=== PATIENT | male | born 1975 | race Two or more races ===

== ENCOUNTER 2017-02-26 13:33 | Inpatient (IN) | payer OTHER ==
[2017-02-26 15:04] VITALS: BMI 31.1
--- NOTE | 2017-02-26 18:35 | HP ---
COWS - Scale Resting Pulse: 1= [place] 81-100 Sweatin= Chills/Flushing Restless Observation: 1= Difficult to Sit Still Pupil Size: 0= Normal to Room Light Bone or Joint Aches: 2= Severe Diffuse Aches Runny Nose/ Eye Tearin= Runny Nose/Eyes GI Upset > 30mins: 1= Stomach Cramp Tremor Observation: 2= Slight Tremor Visible Yawning Observation: 1= 1-2x During Session Anxiety or Irritability: 2=Irritable/Anxious Goose Flesh Skin: 0=Smooth Skin COWS Score: [address] [facility] Chief Complaint: WITHDRAWAL SX Allergies/Adverse Reactions: Allergies Allergy/AdvReac Type Severity Reaction Status Date / Time No Known Allergies Allergy Verified 02/26/17 18:31 History of Present Illness: 41 YEARS OLD MALE WITH LONG HISTORY OF OPIATE NICOTINE DEPENDENCE HAS POSITIVE PPD HYPERTENSION AMBULATE WITH CANE X 6 MONTHS AND BIPOLAR II IS ADMITTED TO DETOX Exam Limitations: No Limitations - Ebola screening Have you traveled outside of the country in the last 21 days: No Have you had contact with anyone from an Ebola affected area: No Have you been sick,other than usual withdrawal symptoms: No Do you have a fever: No - Review of Systems Constitutional: Changes in sleep, Weight Stable EENT: reports: Blurred Vision (NEED EYE GLASSES) Respiratory: reports: No Symptoms reported Cardiac: reports: No Symptoms Reported GI: reports: Nausea, Poor Fluid Intake, Indigestion, Abdominal cramping : reports: No Symptoms Reported Musculoskeletal: reports: Back Pain, Joint Pain, Muscle Pain, Muscle Weakness ( RIGHT LEG), Neck Pain Integumentary: reports: Lesions (BLISTER BILATERALLY FEET) Neuro: reports: Tremors Endocrine: reports: No Symptoms Reported Hematology: reports: No Symptoms Reported Psychiatric: reports: Judgement Intact, Orientated x3, Anxious, Depressed Other Systems: Reviewed and Negative Patient History - Patient Medical History Hx Anemia: No Hx Asthma: No Hx Chronic Obstructive Pulmonary Disease (COPD): No Hx Cancer: No Hx Cardiac Disorders: No Hx Congestive Heart Failure: No Hx Hypertension: Yes Hx Hypercholesterolemia: No Hx Pacemaker: No HX Cerebrovascular Accident: No Hx Seizures: No Hx Dementia: No Hx Diabetes: No Hx Gastrointestinal Disorders: No Hx Liver Disease: No Hx Genitourinary Disorders: No Hx Sexually Transmitted Disorders: No Hx Renal Disease (ESRD): No Hx Thyroid Disease: No Hx Human Immunodeficiency Virus (HIV): No Hx Hepatitis C: Yes Hx Depression: No Hx Suicide Attempt: Yes (2004 CUT SELF) Hx Bipolar Disorder: Yes Hx Schizophrenia: No - Patient Surgical History Past Surgical History: No - PPD History Previous Implant?: Yes Documented Results: Positive w/o proof Implanted On Prior [facility] Admission?: No PPD to be Administered?: No - Smoking Cessation Smoking history: Current every day smoker Have you smoked in the past 12 months: Yes Aproximately how many cigarettes per day: 3 Cigars Per Day: 0 Hx Chewing Tobacco Use: No Initiated information on smoking cessation: Yes 'Breaking Loose' booklet given: 02/26/17 - Substance & Tx. History Hx Alcohol Use: No Hx Substance Use: Yes Substance Use Type: Cocaine, Heroin Hx Substance Use Treatment: Yes (2016 ARM ACE) - Substances Abused Heroin Route: Injection Frequency: Daily Amount used: 10 BAGS Age of first use: 26 Date of Last Use: 02/26/17 Family Disease History - Family Disease History Family Disease History: Heart Disease: Grandparent, Other: Father (), Mother ( HIV) Admission Physical Exam S - Vital Signs Vital Signs: Vital Signs - 24 hr 02/26/17 15:02 Temperature 99.0 F Pulse Rate 95 H Respiratory 18 Rate Blood Pressure 144/84 - Physical General Appearance: Yes: Nourished, Appropriately Dressed, Mild Distress, Tremorous, Irritable, Sweating, Anxious HEENTM: Yes: Normal ENT Inspection, Normocephalic, Normal Voice Respiratory: Yes: Chest Non-Tender, Lungs Clear, Normal Breath Sounds, No Respiratory Distress, No Accessory Muscle Use Neck: Yes: Supple, Trachea in good position Breast: Yes: Breasts Symetrical Cardiology: Yes: Regular Rhythm, S1, S2, Tachycardia Abdominal: Yes: Non Tender, Soft Genitourinary: Yes: Within Normal Limits Back: Yes: Normal Inspection Musculoskeletal: Yes: full range of Motion, Gait Steady, Back pain, Muscle Pain Extremities: Yes: Normal Range of Motion, Non-Tender, Tremors Neurological: Yes: Fully Oriented, Alert, Motor Strength 5/5, Normal Response, Depressed Affect Integumentary: Yes: Warm, Track Martí[place], Other (BLISTER BOTH FEET) Lymphatic: Yes: Within Normal Limits - Diagnostic (1) Opioid dependence with withdrawal Current Visit: Yes Status: Acute (2) Cocaine dependence, uncomplicated Current Visit: Yes Status: Chronic (3) Hypertension Current Visit: Yes Status: Acute Qualifiers: Hypertension type: essential hypertension Qualified Code(s): I10 - Essential (primary) hypertension (4) GERD (gastroesophageal reflux disease) Current Visit: Yes Status: Chronic Qualifiers: Esophagitis presence: without esophagitis Qualified Code(s): K21.9 - Gastro-esophageal reflux disease without esophagitis (5) Hepatitis C Current Visit: Yes Status: Resolved Qualifiers: Viral hepatitis chronicity: unspecified Hepatic coma status: without hepatic coma Qualified Code(s): B19.20 - Unspecified viral hepatitis C without hepatic coma Comment: TREATED (6) Use of cane as ambulatory aid Current Visit: Yes Status: Chronic Comment: RIGHT LEG (7) Positive PPD, treated Current Visit: Yes Status: Resolved (8) Bipolar II disorder Current Visit: Yes Status: Suspected Cleared for Admission S - Detox or Rehab [facility] Level of Care: Medically Managed Detox Regimen/Protocol: Methadone S Breath Alcohol Content Breath Alcohol Content: 0 Urine Drug Screen - Results Drug Screen Negative: No Urine Drug Screen Results: SUSANA-Cocaine, OPI-Opiates
[2017-02-26] MEDS ORDERED: MENTHOL/PHENOL 1 EACH UD MM PRN (18:38)
[2017-02-26] MEDS ORDERED: MAGNESIUM HYDROX 2400MG/30ML ORAL SUSPENSION 30 ML CUP PO PRN (18:38)
[2017-02-26] MEDS ORDERED: METHADONE HCL 10 MG TABLET (FOR DETOX USE ONLY) PO ONE ×2 (18:38→23:00)
[2017-02-26] MEDS ORDERED: MAGNESIUM CITRATE 300 ML BOTTLE PO PRN (18:38)
[2017-02-26] MEDS ORDERED: guaiFENesin/D-METHORPHAN HB 10 ML UNIT-DOSE CUPS PO PRN (18:38)
[2017-02-26] MEDS ORDERED: LOPERAMIDE HCL 2 MG CAPSULE PO PRN (18:38)
[2017-02-26] MEDS ORDERED: NICOTINE POLACRILEX 2 MG GUM BC PRN (18:38)
[2017-02-26] MEDS ORDERED: ACETAMINOPHEN 325 MG TABLET (FP) PO PRN (18:38)
[2017-02-26] MEDS ORDERED: P-EPHED 60MG/TRIPROLIDI 2.5MG TABLET PO PRN (18:38)
[2017-02-26] MEDS ORDERED: MAG HYDROX/AL HYDROX/SIMETH 30 ML UNIT-DOSE CUP PO PRN (18:38)
[2017-02-26] MEDS ORDERED: diphenhydrAMINE HCL 50 MG CAPSULE PO PRN (18:38)
[2017-02-26] MEDS: diazePAM 5 MG TABLET PO PRN (20:21)
[2017-02-26] MEDS: LISINOPRIL 10 MG TABLET (FP) PO SCH (20:22)
[2017-02-26] MEDS: THIAMINE HCL 100 MG TABLET (FP) PO SCH (22:16)
[2017-02-26] MEDS: RANITIDINE HCL 150 MG TABLET (FP) PO SCH (22:16)
[2017-02-26 22:41] LABS: URINE APPEARANCE CLEAR; URINE BILIRUBIN NEGATIVE (NEGATIVE); URINE BLOOD NEGATIVE (NEGATIVE); URINE COLOR YELLOW; URINE GLUCOSE (UA) NEGATIVE (NEGATIVE); URINE KETONE NEGATIVE (NEGATIVE); URINE LEUK ESTERASE NEGATIVE (NEGATIVE); URINE NITRITE NEGATIVE (NEGATIVE); URINE PROTEIN NEGATIVE (NEGATIVE); URINE UROBILINOGEN NEGATIVE mg/dL (0.2-1.0)
[2017-02-27] MEDS ORDERED: METHADONE HCL 10 MG TABLET (FOR DETOX USE ONLY) PO ONE (10:00)
[2017-02-27] MEDS: PRENATAL VITAMINS W/ FOLIC ACID TABLET (FP) PO SCH (10:25)
[2017-02-27] MEDS: LISINOPRIL 10 MG TABLET (FP) PO SCH (10:25)
[2017-02-27] MEDS: RANITIDINE HCL 150 MG TABLET (FP) PO SCH ×2 (10:25→22:28)
[2017-02-27 11:02] LABS: MCH 22.9 pg (25.7-33.7); MCHC 32.1 g/dl (32.0-35.9); MEAN CELL VOLUME 71.4 fl (80-96); MEAN PLT VOLUME 8.6 fl (7.5-11.1); PLATELET COUNT 229 K/MM3 (134-434); RDW 15.4 % (11.9-15.9); WHITE BLOOD COUNT 5.1 K/mm3 (4.0-10.0)
[2017-02-27 11:13] LABS: ALBUMIN 3.2 g/dl (3.4-5.0); ANION GAP 6 (8-16); CALCIUM 8.6 mg/dL (8.5-10.1); CO2 29 mmol/L (21-32); GLUCOSE,RANDOM 93 mg/dL (74-106); SGOT/AST 15 U/L (15-37)
[2017-02-27 11:29] LABS: ALK PHOS 102 U/L (45-117); BILIRUBIN,TOTAL 0.3 mg/dL (0.2-1.0); SGPT/ALT 25 U/L (12-78); TOT PROT 6.3 g/dl (6.4-8.2)
--- NOTE | 2017-02-27 12:15 | PN ---
S COWS - Scale Resting Pulse: 0= [place] 80 or Below Sweatin= Chills/Flushing Restless Observation: 3= Extraneous Movement Pupil Size: 1= Pupils >than Normal Bone or Joint Aches: 2= Severe Diffuse Aches Runny Nose/ Eye Tearin= Runny Nose/Eyes GI Upset > 30mins: 2= Nausea/Diarrhea Tremor Observation of Outstretched Hands: 2= Slight Tremor Visible Yawning Observation: 1= 1-2x During Session Anxiety or Irritability: 2=Irritable/Anxious Goose Flesh Skin: 0=Smooth Skin COWS Score: 16 S Progress Note (SOAP) Subjective: alert,irritable,anxious,interrupted sleep,tremor,pain in the body and back Objective: 02/27/17 12:12 Vital Signs Temperature 97.5 F L 02/27/17 09:52 Pulse Rate 81 02/27/17 09:52 Respiratory Rate 20 02/27/17 09:52 Blood Pressure 142/96 02/27/17 09:52 O2 Sat by Pulse Oximetry (%) ekg nsr,rbbb no chest pain,no sob,no dizziness Laboratory Last Values WBC 5.1 K/mm3 (4.0-10.0) 02/27/17 08:00 RBC 5.63 M/mm3 (4.00-5.60) H 02/27/17 08:00 Hgb 12.9 GM/dL (11.7-16.9) 02/27/17 08:00 Hct 40.2 % (35.4-49) 02/27/17 08:00 MCV 71.4 fl (80-96) L 02/27/17 08:00 MCH 22.9 pg (25.7-33.7) L 02/27/17 08:00 MCHC 32.1 g/dl (32.0-35.9) 02/27/17 08:00 RDW 15.4 % (11.9-15.9) 02/27/17 08:00 Plt Count 229 K/MM3 (134-434) 02/27/17 08:00 MPV 8.6 fl (7.5-11.1) 02/27/17 08:00 Sodium 142 mmol/L (136-145) 02/27/17 08:00 Potassium 4.6 mmol/L (3.5-5.1) 02/27/17 08:00 Chloride 107 mmol/L (98-107) 02/27/17 08:00 Carbon Dioxide 29 mmol/L (21-32) 02/27/17 08:00 Anion Gap 6 (8-16) L 02/27/17 08:00 BUN 15 mg/dL (7-18) 02/27/17 08:00 Creatinine 1.0 mg/dL (0.7-1.3) 02/27/17 08:00 Creat Clearance w eGFR > 60 (>60) 02/27/17 08:00 Random Glucose 93 mg/dL (74-106) 02/27/17 08:00 Calcium 8.6 mg/dL (8.5-10.1) 02/27/17 08:00 Total Bilirubin 0.3 mg/dL (0.2-1.0) 02/27/17 08:00 AST 15 U/L (15-37) 02/27/17 08:00 ALT 25 U/L (12-78) 02/27/17 08:00 Alkaline Phosphatase 102 U/L (45-117) 02/27/17 08:00 Total Protein 6.3 g/dl (6.4-8.2) L 02/27/17 08:00 Albumin 3.2 g/dl (3.4-5.0) L 02/27/17 08:00 Urine Color Yellow 02/26/17 21:45 Urine Appearance Clear 02/26/17 21:45 Urine pH 5.0 (5.0-8.0) 02/26/17 21:45 Ur Specific [place] >= 1.030 (1.005-1.025) H 02/26/17 21:45 Urine Protein Negative (NEGATIVE) 02/26/17 21:45 Urine Glucose (UA) Negative (NEGATIVE) 02/26/17 21:45 Urine Ketones Negative (NEGATIVE) 02/26/17 21:45 Urine Blood Negative (NEGATIVE) 02/26/17 21:45 Urine Nitrite Negative (NEGATIVE) 02/26/17 21:45 Urine Bilirubin Negative (NEGATIVE) 02/26/17 21:45 Urine Urobilinogen Negative mg/dL (0.2-1.0) 02/26/17 21:45 Ur Leukocyte Esterase Negative (NEGATIVE) 02/26/17 21:45 Assessment: 02/27/17 12:14 withdrawal symptom Plan: continue detox
[2017-02-27] MEDS: diazePAM 5 MG TABLET PO PRN ×2 (12:17→22:28)
[2017-02-27] MEDS: NICOTINE 14 MG/24 HOURS TOPICAL PATCH TD SCH (12:44)
--- NOTE | 2017-02-27 17:27 | CONSULT ---
[facility] Psychiatric Consult - Data Date of interview: 02/27/17 Admission source: [facility] Identifying data: First admission to [facility] for this 41 y/o male seeking detox treatment on for heroin and cocaine dependence.Patient is single,a father of one,homeless,unemployed and deprived of any source of income. Substance Abuse History: Discussed with the patient in this interview.Mr Soto admits to this patterns of substance abuse. Smoking Cessation. Smoking history : Current every day smoker. Have you smoked in the past 12 months: Yes. Aproximately how many cigarettes per day: 3. Cigars Per Day: 0. Hx Chewing Tobacco Use: No. Initiated information on smoking cessation: Yes. 'Breaking Loose' booklet given: 02/26/17. - Substance & Tx. History. Hx Alcohol Use: No. Hx Substance Use: Yes. Substance Use Type: Cocaine, Heroin. Hx Substance Use Treatment: Yes (Formerly named [facility]). - Substances Abused. Heroin. Route: Injection. Frequency: Daily. Amount used: 10 BAGS. Age of first use: 26. Date of Last Use: 02/26/17 Medical History: History of positive PPD,hepatitis C,lower back pain,sciatica ( patient walks with cane) and hypertension. Psychiatric History: Diagnosed with Bipolar Disorder (self-report) and prescribed remeron,vistaril and sertraline.Patient admits to past psychiatric hospitalizations at [facility] ([place]).Questionable adherence to medications.No report of psychiatric care.Mr Soto reports a history of suicide attempts (self-mutilation + hanging). Physical/Sexual Abuse/Trauma History: Patient denies. Additional Comment: Urine Drug Screen Results: SUSANA-Cocaine, OPI-Opiates.Noted. Mental Status Exam - Mental Status Exam Alert and Oriented to: Time, Place, Person Cognitive Function: Good Patient Appearance: Well Groomed Mood: Nervous, Anxious Affect: Mood Congruent Patient Behavior: Fatigued, Appropriate, Cooperative Speech Pattern: Clear Voice Loudness: Normal Thought Process: Goal Oriented Thought Disorder: Not Present Hallucinations: Denies Suicidal Ideation: Denies Homicidal Ideation: Denies Insight/Judgement: Poor Sleep: Poorly, Difficulty falling asleep Appetite: Good Muscle strength/Tone: Normal Gait/Station: Other (walks with a cane) Psychiatric Findings - Problem List ([place] 1, 2,3) (1) Opioid dependence with withdrawal Current Visit: Yes Status: Acute (2) Cocaine dependence, uncomplicated Current Visit: Yes Status: Acute (3) Nicotine dependence Current Visit: Yes Status: Acute (4) Substance induced mood disorder Current Visit: Yes Status: Acute (5) Depressive disorder Current Visit: Yes Status: Chronic (6) Hypertension Current Visit: Yes Status: Acute Qualifiers: Hypertension type: essential hypertension Qualified Code(s): I10 - Essential (primary) hypertension (7) GERD (gastroesophageal reflux disease) Current Visit: Yes Status: Chronic Qualifiers: Esophagitis presence: without esophagitis Qualified Code(s): K21.9 - Gastro-esophageal reflux disease without esophagitis (8) Hepatitis C Current Visit: Yes Status: Resolved Qualifiers: Viral hepatitis chronicity: unspecified Hepatic coma status: without hepatic coma Qualified Code(s): B19.20 - Unspecified viral hepatitis C without hepatic coma Comment: TREATED (9) Positive PPD, treated Current Visit: Yes Status: Resolved (10) Use of cane as ambulatory aid Current Visit: Yes Status: Chronic Comment: RIGHT LEG (11) Insomnia Current Visit: Yes Status: Acute - Initial Treatment Plan Initial Treatment Plan: Psychoeducation.Detoxification.Medications : sertraline 50 mg po daily + remeron 15 mg po hs.Side effects/benefits discussed with patient.Mr Soto is in agreement with this careplan.Observation.
--- NOTE | 2017-02-27 18:44 | EKG ---
Test Reason : Blood Pressure : / mmHG Vent. Rate : 089 BPM Atrial Rate : 089 BPM P-R Int : 148 ms QRS Dur : 138 ms QT Int : 380 ms P-R-T Axes : 055 -04 008 degrees QTc Int : 462 ms NORMAL SINUS RHYTHM RIGHT BUNDLE BRANCH BLOCK ABNORMAL ECG NO PREVIOUS ECGS AVAILABLE Confirmed by SEBASTIAN FERNÁNDEZ MD ([id number]) on 02/27/2017 6:44:47 PM Referred By: Confirmed By:SEBASTIAN FERNÁNDEZ MD
[2017-02-27] MEDS: MIRTAZAPINE 15 MG TABLET (FP) PO SCH (22:28)
[2017-02-27] MEDS: THIAMINE HCL 100 MG TABLET (FP) PO SCH (22:29)
[2017-02-28] MEDS ORDERED: METHADONE HCL 5 MG TABLET (FOR DETOX USE ONLY) PO ONE (10:00)
[2017-02-28] MEDS: PRENATAL VITAMINS W/ FOLIC ACID TABLET (FP) PO SCH (10:33)
[2017-02-28] MEDS: diazePAM 5 MG TABLET PO PRN (10:33)
[2017-02-28] MEDS: SERTRALINE HCL 50 MG TABLET (FP) PO SCH (10:33)
[2017-02-28] MEDS: NICOTINE 14 MG/24 HOURS TOPICAL PATCH TD SCH (10:33)
[2017-02-28] MEDS: RANITIDINE HCL 150 MG TABLET (FP) PO SCH ×2 (10:33→23:27)
[2017-02-28] MEDS: LISINOPRIL 10 MG TABLET (FP) PO SCH (10:34)
--- NOTE | 2017-02-28 12:28 | PN ---
S COWS - Scale Resting Pulse: 1= [place] 81-100 Sweatin= Chills/Flushing Restless Observation: 3= Extraneous Movement Pupil Size: 1= Pupils >than Normal Bone or Joint Aches: 2= Severe Diffuse Aches Runny Nose/ Eye Tearin= Runny Nose/Eyes GI Upset > 30mins: 2= Nausea/Diarrhea Tremor Observation of Outstretched Hands: 2= Slight Tremor Visible Yawning Observation: 1= 1-2x During Session Anxiety or Irritability: 2=Irritable/Anxious Goose Flesh Skin: 0=Smooth Skin COWS Score: 17 S Progress Note (SOAP) Subjective: ALERT,IRRITABLE,ANXIOUS,INTERRUPTED SLEEP,TREMOR,PAIN IN THE BODY AND BACK Objective: 02/28/17 12:26 Vital Signs Temperature 97.7 F 02/28/17 10:36 Pulse Rate 82 02/28/17 10:36 Respiratory Rate 16 02/28/17 10:36 Blood Pressure 140/95 02/28/17 10:36 O2 Sat by Pulse Oximetry (%) Laboratory Last Values WBC 5.1 K/mm3 (4.0-10.0) 02/27/17 08:00 RBC 5.63 M/mm3 (4.00-5.60) H 02/27/17 08:00 Hgb 12.9 GM/dL (11.7-16.9) 02/27/17 08:00 Hct 40.2 % (35.4-49) 02/27/17 08:00 MCV 71.4 fl (80-96) L 02/27/17 08:00 MCH 22.9 pg (25.7-33.7) L 02/27/17 08:00 MCHC 32.1 g/dl (32.0-35.9) 02/27/17 08:00 RDW 15.4 % (11.9-15.9) 02/27/17 08:00 Plt Count 229 K/MM3 (134-434) 02/27/17 08:00 MPV 8.6 fl (7.5-11.1) 02/27/17 08:00 Sodium 142 mmol/L (136-145) 02/27/17 08:00 Potassium 4.6 mmol/L (3.5-5.1) 02/27/17 08:00 Chloride 107 mmol/L (98-107) 02/27/17 08:00 Carbon Dioxide 29 mmol/L (21-32) 02/27/17 08:00 Anion Gap 6 (8-16) L 02/27/17 08:00 BUN 15 mg/dL (7-18) 02/27/17 08:00 Creatinine 1.0 mg/dL (0.7-1.3) 02/27/17 08:00 Creat Clearance w eGFR > 60 (>60) 02/27/17 08:00 Random Glucose 93 mg/dL (74-106) 02/27/17 08:00 Calcium 8.6 mg/dL (8.5-10.1) 02/27/17 08:00 Total Bilirubin 0.3 mg/dL (0.2-1.0) 02/27/17 08:00 AST 15 U/L (15-37) 02/27/17 08:00 ALT 25 U/L (12-78) 02/27/17 08:00 Alkaline Phosphatase 102 U/L (45-117) 02/27/17 08:00 Total Protein 6.3 g/dl (6.4-8.2) L 02/27/17 08:00 Albumin 3.2 g/dl (3.4-5.0) L 02/27/17 08:00 Urine Color Yellow 02/26/17 21:45 Urine Appearance Clear 02/26/17 21:45 Urine pH 5.0 (5.0-8.0) 02/26/17 21:45 Ur Specific [place] >= 1.030 (1.005-1.025) H 02/26/17 21:45 Urine Protein Negative (NEGATIVE) 02/26/17 21:45 Urine Glucose (UA) Negative (NEGATIVE) 02/26/17 21:45 Urine Ketones Negative (NEGATIVE) 02/26/17 21:45 Urine Blood Negative (NEGATIVE) 02/26/17 21:45 Urine Nitrite Negative (NEGATIVE) 02/26/17 21:45 Urine Bilirubin Negative (NEGATIVE) 02/26/17 21:45 Urine Urobilinogen Negative mg/dL (0.2-1.0) 02/26/17 21:45 Ur Leukocyte Esterase Negative (NEGATIVE) 02/26/17 21:45 RPR Titer Nonreactive (NONREACTIVE) 02/27/17 08:00 Assessment: 02/28/17 12:27 WITHDRAWAL SYMPTOM Plan: CONTINUE DETOX
[2017-02-28] MEDS: THIAMINE HCL 100 MG TABLET (FP) PO SCH (23:27)
[2017-02-28] MEDS: MIRTAZAPINE 15 MG TABLET (FP) PO SCH (23:27)
[2017-03-01] MEDS ORDERED: METHADONE HCL 5 MG TABLET (FOR DETOX USE ONLY) PO ONE (10:00)
[2017-03-01] MEDS: SERTRALINE HCL 50 MG TABLET (FP) PO SCH (10:25)
[2017-03-01] MEDS: LISINOPRIL 10 MG TABLET (FP) PO SCH (10:25)
[2017-03-01] MEDS: NICOTINE 14 MG/24 HOURS TOPICAL PATCH TD SCH (10:25)
[2017-03-01] MEDS: RANITIDINE HCL 150 MG TABLET (FP) PO SCH ×2 (10:25→22:13)
[2017-03-01] MEDS: PRENATAL VITAMINS W/ FOLIC ACID TABLET (FP) PO SCH (10:26)
--- NOTE | 2017-03-01 11:28 | PN ---
[facility] Progress Note (SOAP) Subjective: ALERT,IRRITABLE,ANXIOUS,INTERRUPTED SLEEP,PAIN IN THE BODY AND BACK Objective: 03/01/17 11:26 Vital Signs Temperature 98.2 F 03/01/17 10:38 Pulse Rate 97 H 03/01/17 10:38 Respiratory Rate 20 03/01/17 10:38 Blood Pressure 142/84 03/01/17 10:38 O2 Sat by Pulse Oximetry (%) Assessment: 03/01/17 11:27 WITHDRAWAL SYMPTOM Plan: CONTINUE DETOX
[2017-03-01] MEDS: THIAMINE HCL 100 MG TABLET (FP) PO SCH (22:12)
[2017-03-01] MEDS: MIRTAZAPINE 15 MG TABLET (FP) PO SCH (22:13)
[2017-03-02] MEDS ORDERED: METHADONE HCL 10 MG TABLET (FOR DETOX USE ONLY) PO ONE (10:00)
--- NOTE | 2017-03-02 10:09 | PN ---
[facility] Progress Note (SOAP) Subjective: ALERT,INTERRUPTED SLEEP,PAIN IN THE BODY Objective: 03/02/17 10:09 Vital Signs Temperature 96.8 F L 03/02/17 09:23 Pulse Rate 83 03/02/17 09:23 Respiratory Rate 18 03/02/17 09:23 Blood Pressure 149/97 03/02/17 09:23 O2 Sat by Pulse Oximetry (%) Assessment: 03/02/17 10:09 WITHDRAWAL SYMPTOM Plan: CONTINUE DETOX
[2017-03-02] MEDS: SERTRALINE HCL 50 MG TABLET (FP) PO SCH (10:14)
[2017-03-02] MEDS: RANITIDINE HCL 150 MG TABLET (FP) PO SCH ×2 (10:14→22:10)
[2017-03-02] MEDS: NICOTINE 14 MG/24 HOURS TOPICAL PATCH TD SCH (10:14)
[2017-03-02] MEDS: PRENATAL VITAMINS W/ FOLIC ACID TABLET (FP) PO SCH (10:14)
[2017-03-02] MEDS: LISINOPRIL 10 MG TABLET (FP) PO SCH (10:15)
[2017-03-02] MEDS: THIAMINE HCL 100 MG TABLET (FP) PO SCH (22:10)
[2017-03-02] MEDS: MIRTAZAPINE 15 MG TABLET (FP) PO SCH (22:10)
[2017-03-03] MEDS ORDERED: METHADONE HCL 5 MG TABLET (FOR DETOX USE ONLY) PO ONE (06:00)
--- NOTE | 2017-03-03 09:37 | DS ---
[facility] Detox Discharge Summary Admission Date: 02/26/17 Discharge Date: 03/03/17 - History Present History: Cocaine Dependence, Opioid Dependence Additional Comments: follow up with after care program as arrangement Pertinent Past History: hypertension gerd hepatitis c low back pain use cane for ambulatory aid bipolar 2 disorder - Physical Exam Results Vital Signs: Vital Signs Temperature 98.1 F 03/02/17 21:22 Pulse Rate 82 03/02/17 21:22 Respiratory Rate 18 03/03/17 00:30 Blood Pressure 118/94 03/02/17 21:22 O2 Sat by Pulse Oximetry (%) - Treatment Hospital Course: Detox Protocol Followed, Detoxed Safely, Responded well, Discharged Condition Good Patient has Accepted a Rehab Referral to: dceclined - Medication Discharge Medications: Ambulatory Orders Hydroxyzine Pamoate [Vistaril -] 50 mg PO HS 02/26/17 Lisinopril [Prinivil -] 10 mg PO DAILY 02/26/17 Mirtazapine [Remeron -] 15 mg PO HS 02/26/17 Sertraline HCl [Zoloft -] 50 mg PO DAILY 02/26/17 Mirtazapine [Remeron -] 15 mg PO HS #30 tablet 02/27/17 Sertraline HCl [Zoloft -] 50 mg PO DAILY #30 tablet 02/27/17 - Diagnosis (1) Cocaine dependence, uncomplicated Current Visit: Yes Status: Acute (2) Hypertension Current Visit: Yes Status: Acute Qualifiers: Hypertension type: essential hypertension Qualified Code(s): I10 - Essential (primary) hypertension (3) Insomnia Current Visit: Yes Status: Acute (4) Nicotine dependence Current Visit: Yes Status: Acute (5) Opioid dependence with withdrawal Current Visit: Yes Status: Acute (6) Substance induced mood disorder Current Visit: Yes Status: Acute (7) Depressive disorder Current Visit: Yes Status: Chronic (8) GERD (gastroesophageal reflux disease) Current Visit: Yes Status: Chronic Qualifiers: Esophagitis presence: without esophagitis Qualified Code(s): K21.9 - Gastro-esophageal reflux disease without esophagitis (9) Use of cane as ambulatory aid Current Visit: Yes Status: Chronic (10) Bipolar II disorder Current Visit: Yes Status: Suspected (11) Hepatitis C Current Visit: Yes Status: Resolved Qualifiers: Viral hepatitis chronicity: unspecified Hepatic coma status: without hepatic coma Qualified Code(s): B19.20 - Unspecified viral hepatitis C without hepatic coma (12) Positive PPD, treated Current Visit: Yes Status: Resolved (13) Low back pain Current Visit: Yes Status: Acute - AMA Did Patient Leave Against Medical Advice: No
[2017-03-03 09:54] VITALS: BP 134/101; PULSE 90; TEMP 96.1
== END 2017-03-03 10:15 | disposition home or self-care (01) | DRG 773 ==
LOC: YASAS 13:33 → Y6N 18:55
PROVIDERS: ADMIT Internal Medicine; ATTEND Internal Medicine
PROC: HZ2ZZZZ Detoxification Services for Substance Abuse Treatment (ICD-10-PCS; principal; 2017-03-03)
DX: F11.23 Opioid dependence with withdrawal (principal); F14.20 Cocaine dependence, uncomplicated; F17.210 Nicotine dependence, cigarettes, uncomplicated; F19.24 Other psychoactive substance dependence with psychoactive substance-induced mood disorder; F34.1 Dysthymic disorder; F31.81 Bipolar II disorder; G47.00 Insomnia, unspecified; I10 Essential (primary) hypertension; K21.9 Gastro-esophageal reflux disease without esophagitis; B19.20 Unspecified viral hepatitis C without hepatic coma; R76.11 Nonspecific reaction to tuberculin skin test without active tuberculosis; R26.89 Other abnormalities of gait and mobility; Z99.89 Dependence on other enabling machines and devices
CPT/HCPCS: 36415; 71020-TC; 80053; 81003; 85027; 86593; 93005; 93010

== ENCOUNTER 2021-02-21 15:25 | Inpatient (IN) | payer OTHER ==
[2021-02-21] MEDS ORDERED: BISMUTH SUBSALICYLATE 524 MG/30 ML PO PRN (20:22)
[2021-02-21] MEDS ORDERED: NICOTINE POLACRILEX 2 MG GUM BUC PRN (20:22)
[2021-02-21] MEDS ORDERED: diazePAM 5 MG TABLET PO PRN (20:22)
[2021-02-21] MEDS ORDERED: MENTHOL/PHENOL 1 EACH UD MM PRN (20:22)
[2021-02-21] MEDS ORDERED: ACETAMINOPHEN 325 MG TABLET (FP) PO PRN ×2 (20:22)
[2021-02-21] MEDS ORDERED: MAG HYDROX/AL HYDROX/SIMETH 30 ML UNIT-DOSE CUP PO PRN (20:22)
[2021-02-21] MEDS ORDERED: clonazePAM 0.5 MG ODT TABLETS SL PRN (20:22)
[2021-02-21] MEDS ORDERED: MAGNESIUM HYDROX 2400MG/30ML ORAL SUSPENSION 30 ML CUP PO PRN (20:22)
[2021-02-21] MEDS ORDERED: MAGNESIUM CITRATE 300 ML BOTTLE PO PRN (20:22)
[2021-02-21] MEDS ORDERED: methaDONE HCL 10 MG TABLET (FOR DETOX USE ONLY) PO ONE (20:22)
[2021-02-21] MEDS ORDERED: ONDANSETRON *ODT* 4 MG TABLET SL PRN (20:22)
[2021-02-21] MEDS ORDERED: IBUPROFEN 400 MG TABLET (FP) PO PRN (20:22)
[2021-02-21] MEDS ORDERED: NICOTINE 10 MG CARTRIDGE (INHALER) IH PRN (20:22)
[2021-02-21] MEDS ORDERED: cloNIDine HCL 0.1 MG TABLET PO PRN (20:22)
[2021-02-21 21:36] VITALS: BMI 26.8
[2021-02-21] MEDS: THIAMINE HCL 100 MG TABLET (FP) PO SCH (23:03)
[2021-02-21] MEDS: hydrOXYzine PAMOATE 25 MG CAPSULE (FP) PO SCH (23:03)
[2021-02-21] MEDS: MELATONIN 5 MG TABLETS PO SCH (23:03)
[2021-02-21] MEDS: diazePAM 5 MG TABLET PO SCH (23:03)
[2021-02-22] MEDS: diazePAM 5 MG TABLET PO SCH ×3 (06:10→18:27)
[2021-02-22] MEDS: hydrOXYzine PAMOATE 25 MG CAPSULE (FP) PO SCH ×4 (06:10→18:27)
[2021-02-22] MEDS ORDERED: methaDONE HCL 10 MG TABLET (FOR DETOX USE ONLY) ONE (09:45)
[2021-02-22] MEDS: METHOCARBAMOL 500 MG TABLET PO PRN (10:50)
[2021-02-22] MEDS: PRENATAL VITAMINS W/ FOLIC ACID TABLET (FP) PO SCH (10:51)
[2021-02-22] MEDS: NICOTINE 7 MG/24 HOURS TOPICAL PATCH TD SCH (10:53)
[2021-02-23] MEDS: MELATONIN 5 MG TABLETS PO SCH ×2 (01:27→23:29)
[2021-02-23] MEDS: hydrOXYzine PAMOATE 25 MG CAPSULE (FP) PO SCH ×4 (01:28→13:47)
[2021-02-23] MEDS: diazePAM 5 MG TABLET PO SCH ×4 (01:28→23:29)
[2021-02-23] MEDS: THIAMINE HCL 100 MG TABLET (FP) PO SCH ×2 (01:28→23:29)
[2021-02-23] MEDS ORDERED: methaDONE HCL 10 MG TABLET (FOR DETOX USE ONLY) PO ONE (10:00)
[2021-02-23] MEDS: PRENATAL VITAMINS W/ FOLIC ACID TABLET (FP) PO SCH (11:07)
[2021-02-23] MEDS: NICOTINE 7 MG/24 HOURS TOPICAL PATCH TD SCH (11:07)
[2021-02-23] MEDS: LISINOPRIL 10 MG TABLET PO SCH (14:45)
[2021-02-24] MEDS: diazePAM 5 MG TABLET PO SCH ×2 (07:14→18:39)
[2021-02-24] MEDS ORDERED: methaDONE HCL 10 MG TABLET (FOR DETOX USE ONLY) ONE (09:14)
[2021-02-24 10:21] LABS: HEMATOCRIT 40.1 % (35.4-49); HEMOGLOBIN 13.2 GM/dL (11.7-16.9); MCH 22.9 pg (25.7-33.7); MCHC 32.8 g/dl (32.0-35.9); MEAN CELL VOLUME 69.9 fl (80-96); MEAN PLT VOLUME 9.2 fl (7.5-11.1); PLATELET COUNT 260 10^3/uL (134-434); RBC 5.74 M/mm3 (4.00-5.60); RDW 16.3 % (11.9-15.9)
[2021-02-24] MEDS: LISINOPRIL 10 MG TABLET PO SCH (10:32)
[2021-02-24] MEDS: PRENATAL VITAMINS W/ FOLIC ACID TABLET (FP) PO SCH (10:32)
[2021-02-24] MEDS: NICOTINE 7 MG/24 HOURS TOPICAL PATCH TD SCH (10:33)
[2021-02-24 12:38] LABS: BLOOD UREA NITROGEN 9.5 mg/dL (7-18)
[2021-02-24 12:39] LABS: ALBUMIN 3.3 g/dl (3.4-5.0)
[2021-02-24 12:40] LABS: BILIRUBIN,TOTAL 0.5 mg/dL (0.2-1); TOT PROT 7.4 g/dl (6.4-8.2)
[2021-02-24 12:45] LABS: CALCIUM 8.9 mg/dL (8.5-10.1)
[2021-02-24] MEDS: THIAMINE HCL 100 MG TABLET (FP) PO SCH (22:30)
[2021-02-24] MEDS: MELATONIN 5 MG TABLETS PO SCH (22:30)
[2021-02-24] MEDS: hydrOXYzine PAMOATE 25 MG CAPSULE (FP) PO PRN (22:31)
[2021-02-24] MEDS: METHOCARBAMOL 500 MG TABLET PO PRN (22:33)
[2021-02-25] MEDS: hydrOXYzine PAMOATE 25 MG CAPSULE (FP) PO PRN ×2 (03:50→10:39)
[2021-02-25] MEDS ORDERED: diazePAM 5 MG TABLET PO ONE (06:00)
[2021-02-25] MEDS: METHOCARBAMOL 500 MG TABLET PO PRN (08:39)
[2021-02-25] MEDS ORDERED: IBUPROFEN 400 MG TABLET (FP) PO PRN (08:40)
[2021-02-25 09:22] VITALS: BP 135/83; PULSE 68; TEMP 97.3
[2021-02-25] MEDS ORDERED: methaDONE HCL 10 MG TABLET (FOR DETOX USE ONLY) PO ONE (10:00)
[2021-02-25] MEDS ORDERED: METHYL SALICYLATE/MENTHOL OINT 30 GM TUBE TP SCH (10:00)
[2021-02-25] MEDS: LISINOPRIL 10 MG TABLET PO SCH (10:36)
[2021-02-25] MEDS: NICOTINE 7 MG/24 HOURS TOPICAL PATCH TD SCH (10:36)
[2021-02-25] MEDS: PRENATAL VITAMINS W/ FOLIC ACID TABLET (FP) PO SCH (10:36)
== END 2021-02-25 12:00 | disposition home or self-care (01) | DRG 773 ==
LOC: YASAS 15:25 → Y3N 20:40
PROVIDERS: ADMIT Allergy & Immunology; ATTEND Allergy & Immunology
PROC: HZ2ZZZZ Detoxification Services for Substance Abuse Treatment (ICD-10-PCS; principal; 2021-02-21)
DX: F11.23 Opioid dependence with withdrawal (principal); F10.230 Alcohol dependence with withdrawal, uncomplicated; F14.20 Cocaine dependence, uncomplicated; F12.20 Cannabis dependence, uncomplicated; F17.210 Nicotine dependence, cigarettes, uncomplicated; F31.81 Bipolar II disorder; F19.24 Other psychoactive substance dependence with psychoactive substance-induced mood disorder; F41.9 Anxiety disorder, unspecified; G47.00 Insomnia, unspecified; I10 Essential (primary) hypertension; K21.9 Gastro-esophageal reflux disease without esophagitis; M54.5 Low back pain; Z99.89 Dependence on other enabling machines and devices
CPT/HCPCS: 36415; 80053; 85027; 86780; C9803; Q0162; U0003; U0005

== ENCOUNTER 2021-05-13 10:42 | Inpatient (IN) | payer OTHER ==
[2021-05-13 10:52] VITALS: BMI 26.2
[2021-05-13] MEDS ORDERED: NICOTINE 10 MG CARTRIDGE (INHALER) IH PRN (11:41)
[2021-05-13] MEDS ORDERED: MAG HYDROX/AL HYDROX/SIMETH 30 ML UNIT-DOSE CUP PO PRN (11:41)
[2021-05-13] MEDS ORDERED: MENTHOL/PHENOL 1 EACH UD MM PRN (11:41)
[2021-05-13] MEDS ORDERED: ACETAMINOPHEN 325 MG TABLET (FP) PO PRN ×2 (11:41)
[2021-05-13] MEDS ORDERED: ONDANSETRON *ODT* 4 MG TABLET SL PRN (11:41)
[2021-05-13] MEDS ORDERED: BISMUTH SUBSALICYLATE 524 MG/30 ML PO PRN (11:41)
[2021-05-13] MEDS ORDERED: MAGNESIUM CITRATE 300 ML BOTTLE PO PRN (11:41)
[2021-05-13] MEDS ORDERED: IBUPROFEN 400 MG TABLET (FP) PO PRN (11:41)
[2021-05-13] MEDS ORDERED: MAGNESIUM HYDROX 2400MG/30ML ORAL SUSPENSION 30 ML CUP PO PRN (11:41)
[2021-05-13] MEDS ORDERED: methaDONE HCL 10 MG TABLET (FOR DETOX USE ONLY) PO ONE (13:45)
[2021-05-13] MEDS: PRENATAL VITAMINS W/ FOLIC ACID TABLET (FP) PO SCH (15:23)
[2021-05-13] MEDS: hydrOXYzine PAMOATE 25 MG CAPSULE (FP) PO SCH ×3 (15:23→22:22)
[2021-05-13] MEDS: cloNIDine HCL 0.1 MG TABLET PO PRN (22:22)
[2021-05-13] MEDS: MELATONIN 5 MG TABLETS PO SCH (22:22)
[2021-05-13] MEDS: THIAMINE HCL 100 MG TABLET (FP) PO SCH (22:22)
[2021-05-13] MEDS: METHOCARBAMOL 500 MG TABLET PO PRN (22:22)
[2021-05-14] MEDS: hydrOXYzine PAMOATE 25 MG CAPSULE (FP) PO SCH ×5 (07:00→22:46)
[2021-05-14] MEDS: cloNIDine HCL 0.1 MG TABLET PO PRN ×3 (07:00→17:57)
[2021-05-14] MEDS ORDERED: methaDONE HCL 10 MG TABLET (FOR DETOX USE ONLY) ONE (08:59)
[2021-05-14 10:16] LABS: HEMATOCRIT 36.2 % (35.4-49); HEMOGLOBIN 11.8 GM/dL (11.7-16.9); MCH 22.6 pg (25.7-33.7); MCHC 32.6 g/dl (32.0-35.9); MEAN CELL VOLUME 69.4 fl (80-96); MEAN PLT VOLUME 8.9 fl (7.5-11.1); PLATELET COUNT 198 10^3/uL (134-434); RBC 5.21 M/mm3 (4.00-5.60); RDW 16.1 % (11.9-15.9)
[2021-05-14 10:23] LABS: CALCIUM 8.6 mg/dL (8.5-10.1)
[2021-05-14 10:28] LABS: BILIRUBIN,TOTAL 0.3 mg/dL (0.2-1); CREATININE 0.9 mg/dL (0.55-1.3); TOT PROT 7.2 g/dl (6.4-8.2)
[2021-05-14] MEDS ORDERED: TRIMETHOBENZAMIDE HCL 200MG/2ML INJ IM PRN (11:35)
[2021-05-14] MEDS: PRENATAL VITAMINS W/ FOLIC ACID TABLET (FP) PO SCH (11:36)
[2021-05-14] MEDS: diazePAM 5 MG TABLET PO PRN (22:46)
[2021-05-14] MEDS: METHOCARBAMOL 500 MG TABLET PO PRN (22:46)
[2021-05-14] MEDS: THIAMINE HCL 100 MG TABLET (FP) PO SCH (22:46)
[2021-05-14] MEDS: MELATONIN 5 MG TABLETS PO SCH (22:47)
[2021-05-15] MEDS: hydrOXYzine PAMOATE 25 MG CAPSULE (FP) PO SCH ×5 (07:00→22:58)
[2021-05-15] MEDS ORDERED: methaDONE HCL 10 MG TABLET (FOR DETOX USE ONLY) PO ONE (10:00)
[2021-05-15] MEDS: PRENATAL VITAMINS W/ FOLIC ACID TABLET (FP) PO SCH (11:54)
[2021-05-15] MEDS: cloNIDine HCL 0.1 MG TABLET PO PRN (17:49)
[2021-05-15] MEDS: diazePAM 5 MG TABLET PO PRN (22:58)
[2021-05-15] MEDS: MELATONIN 5 MG TABLETS PO SCH (22:58)
[2021-05-15] MEDS: METHOCARBAMOL 500 MG TABLET PO PRN (22:58)
[2021-05-15] MEDS: THIAMINE HCL 100 MG TABLET (FP) PO SCH (22:58)
[2021-05-16] MEDS: hydrOXYzine PAMOATE 25 MG CAPSULE (FP) PO SCH ×5 (08:12→21:31)
[2021-05-16] MEDS ORDERED: methaDONE HCL 10 MG TABLET (FOR DETOX USE ONLY) ONE (09:11)
[2021-05-16] MEDS: PRENATAL VITAMINS W/ FOLIC ACID TABLET (FP) PO SCH (10:16)
[2021-05-16] MEDS: diazePAM 5 MG TABLET PO PRN ×2 (14:56→21:32)
[2021-05-16] MEDS: cloNIDine HCL 0.1 MG TABLET PO PRN ×2 (15:33→21:31)
[2021-05-16] MEDS: METHOCARBAMOL 500 MG TABLET PO PRN (21:31)
[2021-05-16] MEDS: THIAMINE HCL 100 MG TABLET (FP) PO SCH (21:32)
[2021-05-16] MEDS: MELATONIN 5 MG TABLETS PO SCH (21:33)
[2021-05-17] MEDS: hydrOXYzine PAMOATE 25 MG CAPSULE (FP) PO SCH ×3 (05:10→13:41)
[2021-05-17] MEDS ORDERED: methaDONE HCL 10 MG TABLET (FOR DETOX USE ONLY) PO ONE (10:00)
[2021-05-17 10:07] VITALS: BP 127/83; PULSE 83; TEMP 97.5
[2021-05-17] MEDS: PRENATAL VITAMINS W/ FOLIC ACID TABLET (FP) PO SCH (10:12)
== END 2021-05-17 15:26 | disposition home or self-care (01) | DRG 773 ==
LOC: YASAS 10:42 → Y3N 14:31
PROVIDERS: ADMIT Allergy & Immunology; ATTEND Allergy & Immunology
PROC: HZ2ZZZZ Detoxification Services for Substance Abuse Treatment (ICD-10-PCS; principal; 2021-05-13)
DX: F11.23 Opioid dependence with withdrawal (principal); F14.20 Cocaine dependence, uncomplicated; F12.20 Cannabis dependence, uncomplicated; F17.210 Nicotine dependence, cigarettes, uncomplicated; F31.81 Bipolar II disorder; F19.24 Other psychoactive substance dependence with psychoactive substance-induced mood disorder; F41.9 Anxiety disorder, unspecified; I10 Essential (primary) hypertension; K21.9 Gastro-esophageal reflux disease without esophagitis; M54.30 Sciatica, unspecified side; Z56.0 Unemployment, unspecified; Z59.00 Homelessness unspecified
CPT/HCPCS: 36415; 80053; 85027; 86780; C9803; J0735; Q0162; U0003; U0005

== ENCOUNTER 2021-07-08 15:44 | Inpatient (IN) | payer OTHER ==
[2021-07-08 17:45] VITALS: BMI 27.2
[2021-07-08] MEDS ORDERED: DICYCLOMINE HCL 10 MG CAPSULE PO PRN (18:23)
[2021-07-08] MEDS ORDERED: ACETAMINOPHEN 325 MG TABLET (FP) PO PRN ×2 (18:23)
[2021-07-08] MEDS ORDERED: NALOXONE (NARCAN) HCL 4 MG/0.1 ML SPRAY NS PRN (18:23)
[2021-07-08] MEDS ORDERED: MENTHOL/PHENOL 1 EACH UD MM PRN (18:23)
[2021-07-08] MEDS ORDERED: BISMUTH SUBSALICYLATE 524 MG/30 ML PO PRN (18:23)
[2021-07-08] MEDS ORDERED: P-EPHED 60MG/TRIPROLIDI 2.5MG TABLET PO PRN (18:23)
[2021-07-08] MEDS ORDERED: MAGNESIUM HYDROX 2400MG/30ML ORAL SUSPENSION 30 ML CUP PO PRN (18:23)
[2021-07-08] MEDS ORDERED: IBUPROFEN 400 MG TABLET (FP) PO PRN (18:23)
[2021-07-08] MEDS ORDERED: MAG HYDROX/AL HYDROX/SIMETH 30 ML UNIT-DOSE CUP PO PRN (18:23)
[2021-07-08] MEDS ORDERED: NICOTINE POLACRILEX 2 MG GUM BUC PRN (18:23)
[2021-07-08] MEDS ORDERED: NALOXONE HCL 0.4 MG/ML VIAL IM PRN (18:23)
[2021-07-08] MEDS ORDERED: MAGNESIUM CITRATE 300 ML BOTTLE PO PRN (18:23)
[2021-07-08] MEDS ORDERED: guaiFENesin 200 MG/10 ML 10 ML UNIT-DOSE CUPS PO PRN (18:23)
[2021-07-08] MEDS ORDERED: ONDANSETRON *ODT* 4 MG TABLET SL PRN (18:23)
[2021-07-08] MEDS: METHOCARBAMOL 500 MG TABLET PO PRN (21:49)
[2021-07-08] MEDS: hydrOXYzine PAMOATE 25 MG CAPSULE (FP) PO PRN (21:49)
[2021-07-08] MEDS: THIAMINE HCL 100 MG TABLET (FP) PO SCH (21:49)
[2021-07-08] MEDS: DOCUSATE SODIUM 100 MG CAPSULE (FP) PO SCH (21:49)
[2021-07-08] MEDS: MELATONIN 5 MG TABLETS PO SCH (21:49)
[2021-07-09] MEDS ORDERED: cloNIDine HCL 0.1 MG TABLET PO PRN (09:53)
[2021-07-09] MEDS ORDERED: methaDONE HCL 10 MG TABLET (FOR DETOX USE ONLY) PO ONE (10:15)
[2021-07-09] MEDS ORDERED: ONDANSETRON *ODT* 4 MG TABLET SL ONE (10:30)
[2021-07-09] MEDS: PRENATAL VITAMINS W/ FOLIC ACID TABLET (FP) PO SCH (10:36)
[2021-07-09] MEDS: hydrOXYzine PAMOATE 25 MG CAPSULE (FP) PO PRN ×2 (10:38→22:08)
[2021-07-09] MEDS: METHOCARBAMOL 500 MG TABLET PO PRN ×2 (10:38→22:08)
[2021-07-09] MEDS: PANTOPRAZOLE 20 MG TABLET PO SCH (10:38)
[2021-07-09] MEDS: NICOTINE 7 MG/24 HOURS TOPICAL PATCH TD SCH (10:40)
[2021-07-09 10:54] LABS: HEMATOCRIT 37.5 % (35.4-49); HEMOGLOBIN 12.4 GM/dL (11.7-16.9); MCH 23.1 pg (25.7-33.7); MCHC 32.9 g/dl (32.0-35.9); MEAN CELL VOLUME 70.3 fl (80-96); PLATELET COUNT 210 10^3/uL (134-434); RBC 5.34 M/mm3 (4.00-5.60); RDW 15.4 % (11.9-15.9); WHITE BLOOD COUNT 7.3 K/mm3 (4.0-10.0)
[2021-07-09 10:56] LABS: ALBUMIN 2.9 g/dl (3.4-5.0); BLOOD UREA NITROGEN 11.2 mg/dL (7-18); CALCIUM 8.9 mg/dL (8.5-10.1)
[2021-07-09 11:00] LABS: BILIRUBIN,TOTAL 0.4 mg/dL (0.2-1); CREATININE 0.8 mg/dL (0.55-1.3)
[2021-07-09] MEDS: DOCUSATE SODIUM 100 MG CAPSULE (FP) PO SCH (22:07)
[2021-07-09] MEDS: THIAMINE HCL 100 MG TABLET (FP) PO SCH (22:08)
[2021-07-09] MEDS: MELATONIN 5 MG TABLETS PO SCH (22:08)
[2021-07-10] MEDS ORDERED: methaDONE HCL 10 MG TABLET (FOR DETOX USE ONLY) ONE (09:33)
[2021-07-10] MEDS: PANTOPRAZOLE 20 MG TABLET PO SCH (10:49)
[2021-07-10] MEDS: hydrOXYzine PAMOATE 25 MG CAPSULE (FP) PO PRN ×2 (10:49→15:16)
[2021-07-10] MEDS: METHOCARBAMOL 500 MG TABLET PO PRN (10:49)
[2021-07-10] MEDS: PRENATAL VITAMINS W/ FOLIC ACID TABLET (FP) PO SCH (10:49)
[2021-07-10] MEDS: NICOTINE 7 MG/24 HOURS TOPICAL PATCH TD SCH (10:51)
[2021-07-10] MEDS: amLODIPine BESYLATE 10 MG TABLET (FP) PO SCH (15:16)
[2021-07-10] MEDS: DOCUSATE SODIUM 100 MG CAPSULE (FP) PO SCH (23:40)
[2021-07-10] MEDS: THIAMINE HCL 100 MG TABLET (FP) PO SCH (23:40)
[2021-07-10] MEDS: MELATONIN 5 MG TABLETS PO SCH (23:40)
[2021-07-11] MEDS: hydrOXYzine PAMOATE 25 MG CAPSULE (FP) PO PRN (09:58)
[2021-07-11] MEDS: NICOTINE 7 MG/24 HOURS TOPICAL PATCH TD SCH (09:58)
[2021-07-11] MEDS: amLODIPine BESYLATE 10 MG TABLET (FP) PO SCH (09:58)
[2021-07-11] MEDS: PRENATAL VITAMINS W/ FOLIC ACID TABLET (FP) PO SCH (10:00)
[2021-07-11] MEDS ORDERED: methaDONE HCL 10 MG TABLET (FOR DETOX USE ONLY) PO ONE (10:00)
[2021-07-11] MEDS: PANTOPRAZOLE 20 MG TABLET PO SCH (10:00)
[2021-07-11 11:31] VITALS: BP 134/69; PULSE 66; TEMP 98.1
[2021-07-13] MEDS ORDERED: methaDONE HCL 10 MG TABLET (FOR DETOX USE ONLY) PO ONE (10:00)
== END 2021-07-11 11:36 | disposition left against medical advice (07) | DRG 770 ==
LOC: YASAS 15:44 → Y6N 19:25
PROVIDERS: ADMIT Allergy & Immunology; ATTEND Allergy & Immunology
PROC: HZ2ZZZZ Detoxification Services for Substance Abuse Treatment (ICD-10-PCS; principal; 2021-07-08)
DX: F11.23 Opioid dependence with withdrawal (principal); F14.20 Cocaine dependence, uncomplicated; F17.210 Nicotine dependence, cigarettes, uncomplicated; F19.24 Other psychoactive substance dependence with psychoactive substance-induced mood disorder; I10 Essential (primary) hypertension; K21.9 Gastro-esophageal reflux disease without esophagitis; K59.03 Drug induced constipation; B18.2 Chronic viral hepatitis C; M54.31 Sciatica, right side; M54.50 Low back pain, unspecified; Z86.11 Personal history of tuberculosis; Z59.00 Homelessness unspecified
CPT/HCPCS: 36415; 80053; 85027; 86780; 93005; 93010; C9803; J0735; Q0162; U0003; U0005